=== PATIENT | female | born 1945 | race Caucasian/White ===

== ENCOUNTER 2018-10-28 16:51 | Inpatient (IN) | payer MEDICARE, OTHER ==
[~2018-10-28] VITALS: Ht 147.3 cm; Wt 51.7 kg
[2018-10-28 16:56] VITALS: BP 182/89
[2018-10-28 17:29] LABS: ABSOLUTE EOSINOPHILS 0.1 thou/uL (0.0-0.7); ABSOLUTE LYMPHOCYTES 1.4 thou/uL (0.8-5.3); ABSOLUTE MONOCYTES 0.4 thou/uL (0.0-1.2); ABSOLUTE NEUTROPHILS 2.5 thou/uL (1.6-8.1); BASOPHILS 0.3 %; EOSINOPHILS 1.4 %; HEMATOCRIT 36.8 % (37.0-47.0); HEMOGLOBIN 12.5 gm/dL (12.0-15.0); LYMPHOCYTES 31.3 %; MCH 34.1 pg (26.0-34.0); MCHC 33.8 g/dL (28.0-37.0); MCV 100.9 fL (80.0-100.0); MONOCYTES 10.1 %; MPV 7.4 fl. (7.2-11.1); NUCLEATED RBCS 0 /100WBC; PLATELET COUNT* 170 thou/uL (150-400); POLYS 56.9 %; RBC 3.65 mil/uL (4.20-5.00); RDW-CV 12.8 % (10.5-14.5); WBC 4.4 thou/uL (4.0-11.0)
[2018-10-28 17:49] LABS: ANION GAP 9 mmol/L (7-16); BUN 16 mg/dL (7-18); CALCIUM 9.1 mg/dL (8.5-10.1); CHLORIDE 102 mmol/L (98-107); CO2 29 mmol/L (21-32); GLUCOSE 113 mg/dL (70-99); POTASSIUM 3.5 mmol/L (3.5-5.1); SODIUM 140 mmol/L (136-145); TROPONIN-I LEVEL <0.06 ng/mL (<0.06)
[2018-10-28 17:51] LABS: ALBUMIN 3.9 g/dL (3.4-5.0); ALKALINE PHOSPHATASE 49 U/L (46-116); NT-PRO BRAIN NAT PEPTIDE 223 pg/mL (<300); SGOT 25 U/L (15-37); SGPT 31 U/L (30-65); TOTAL BILIRUBIN 0.5 mg/dL (<0.1-1.0); TOTAL PROTEIN 6.5 g/dL (6.4-8.2)
[2018-10-28] MEDS ORDERED: ACETAMINOPHEN-1 EAC1 PO (18:33)
[2018-10-28] MEDS ORDERED: LIPITOR 20 MG T20 M1 PO (18:33)
[2018-10-28] MEDS ORDERED: AZELASTINE137 MCG/0. INH (18:34)
[2018-10-28] MEDS ORDERED: FOLIC ACID1 MG PO (18:35)
[2018-10-28] MEDS ORDERED: GABAPENTIN 100100 MG PO (18:35)
[2018-10-28] MEDS ORDERED: CALCIUM 600 +1 EAC1 PO (18:35)
[2018-10-28] MEDS ORDERED: COENZYME Q-1030 MG PO (18:35)
[2018-10-28] MEDS ORDERED: COZAAR 25 MG TA25 M2 PO (18:35)
[2018-10-28] MEDS ORDERED: FISH OIL 1,001000 M2 PO (18:35)
[2018-10-28] MEDS ORDERED: MULTI VITAMIN1 EACH PO (18:36)
[2018-10-28] MEDS ORDERED: ROBAXIN 750 MG750 M1 PO (18:36)
[2018-10-28] MEDS ORDERED: ZANTAC 150MG T150 M1 PO ×2 (18:37)
[2018-10-28] MEDS ORDERED: ZYRTEC10 M4 PO (18:38)
[2018-10-28] MEDS ORDERED: VALACYCLOVIR1000 MG PO (18:38)
[2018-10-28 19:31] VITALS: BP 157/89
[2018-10-28 19:45] VITALS: BP 153/89
[2018-10-29] VITALS (8 sets, daily range): BP systolic 79–149; BP diastolic 55–88
--- NOTE | 2018-10-29 04:59 | NUR ---
PT RECIEVED FROM ED AT APPROX 1999. ALERT AND ORIENTED X4. SAT MAINTAINED IN RA. CALL LIGHT WITHIN REACH AND BED IN LOW POSITION. NIH DONE AND CHARTED. C/O PAIN, MEDICATION GIVEN PER EMAR. HOURLY ROUNDING DONE FOR PATIENT SAFETY.
[2018-10-29 05:52] LABS: CHOLESTEROL 129 mg/dL (<200); HDL CHOLESTEROL 70 mg/dL (>40); LDL CHOLESTEROL 53 mg/dL (<100); TC:HDL 1.8 Ratio (Not establshd); TRIGLYCERIDE 33 mg/dL (<150); VLDL 7 mg/dL (<40)
[2018-10-29 05:54] LABS: SERUM ASSESSMENT Clear
[2018-10-29] MEDS ORDERED: ASPIR 8181 MG PO (10:55)
--- NOTE | 2018-10-29 12:31 | EKG ---
[place] [address] ELECTROCARDIOGRAM REPORT Name: ROD ELIZABETH Room: [address] ADM IN M.R.#: [id number] Admission: 10/28/18 Attend Phys: Abdifatah Mcbride MD Discharge: Date of : 41 Report #: [id number] THIS REPORT FOR: //name// [facility] ED Test Date: 2018-10-28 Test Time: 17:20:08 Pat Name: ROD ELIZABETH Department: Room: [facility] Gender: F Steel Pourer: Bubba LANGE : 1945 Requested By: Jay Jay Cifuentes Order Number: [id number] MD: Arnulfo Acosta Measurements Intervals [place] Rate: 78 P: 64 OK: 143 QRS: 17 QRSD: 89 T: 46 QT: 403 QTc: 460 Interpretive Statements Sinus rhythm No previous ECG available for comparison Electronically Signed On 10-29-2018 12:31:00 CDT by Arnulfo Acosta [email or web address] <ELECTRONICALLY SIGNED> By: Arnulfo Acosta MD, [facility] 10/29/18 1231 19 Arnulfo Acosta MD, [facility] /EPI
--- NOTE | 2018-10-29 15:47 | NUR ---
PT A&O X4, UP WITH ASSIST X1 AND WALKER, FALL PRECAUTIONS IN PLACE. C/O PAIN TO BACK OF HEAD FROM FALL, PRN PAIN MEDS ON BOARD, TOLERATED WELL WITH GOOD RESULTS. PT REFUSED ASA AND ALL SUPPLEMENTS THIS AM D/T HAVING SURGERY 11/03. HOURLY ROUNDING COMPLETED. PT DISCHARGED HOME LEAVING UNIT AT APPROX 1535, EDUCATED ON ALL DISCHARGE INSTRUCTIONS INCLUDING MEDICATIONS AND FOLLOW UP APPTS. ASSEMBLY AND PACKING SUPERVISOR AND IV REMOVED. PT LEFT VIA WC WITH NURSING STAFF AND DAUGHTER AT SIDE.
[2018-10-29 23:05] LABS: GLYCOHEMOGLOBIN (HGB A1C) 5.2 % (4.8-5.6)
--- NOTE | 2018-10-30 11:27 | CON ---
[address] [address] CONSULTATION Name: GLENNROD Bubba Room: [address] IN M.R.#: [id number] Admission: 10/28/18 Attend Phys: Abdifatah Mcbride MD Discharge: 10/29/18 Date of : 41 Report #: [id number] THIS REPORT FOR: //name// CC: Abdifatah Bonillas HISTORY OF PRESENT ILLNESS: The patient is a 73-year-old female who yesterday had a very active day when she went home. By the time she had carried her second load of laundry up the stairs, she remembers grabbing for the rail, but in fact she fell backwards. She remembers looking at the ceiling. Apparently, she put a hole in the wall behind her. She was found by her neighbor who had borrowed her front end software developer. When he found her, she was confused. In fact, she has no real recollection of getting into the car and coming to the hospital. Today, the patient feels fine. She has no headache. She does tell me that from time to time, she has weakness in her legs. She is going to be having back surgery for spinal stenosis, sometime in November. PAST MEDICAL HISTORY: Hyperlipidemia, hypertension, gastroesophageal reflux, environmental allergies, non-Hodgkin's lymphoma, right pneumothorax, spinal stenosis. PAST SURGICAL HISTORY: Foot surgery. MEDICATIONS AT HOME: Tylenol 3, Lipitor 20 mg daily, azelastine nose spray b.i.d., calcium with vitamin D daily, losartan 25 mg daily, coenzyme Q10 30 mg daily, fish oil 1000 mg daily, folic acid 1 mg daily, gabapentin 100 mg daily, methocarbamol 750 mg at bedtime, multivitamin daily, ranitidine 150 mg in the morning and 75 mg at night, valacyclovir 1000 mg p.r.n. and cetirizine 10 mg daily. ALLERGIES: None. PHYSICAL EXAMINATION: VITAL SIGNS: Temperature is 36.8, pulse rate 75, respiratory rate 16, blood pressure 75/55, bedside pulse oximetry 98% on room air. NEUROLOGIC: Cranial nerves 2-12 are grossly intact. Motor exam demonstrates symmetrical strength in all 4 extremities with tone and bulk normal. Reflexes are trace. Plantar responses are flexor. Coordination reveals intact [id number]. Gait was not tested. LABORATORY DATA: Hematology: White blood cell count 4.4, hemoglobin 12.5, hematocrit 36.8, platelets 170,000. Chemistry: Sodium 140, potassium 3.5, chloride 102, carbon dioxide 25, BUN 16, creatinine 1, glucose 113. Liver functions normal. Lipid profile normal. IMAGING: CT scan of the head shows microvascular disease. Carotid ultrasound demonstrates no evidence [place] [address] CONSULTATION Name: ROD ELIZABETH Room: [address] IN [facility].#: [id number] Admission: 10/28/18 Attend Phys: Abdifatah Mcbride MD Discharge: 10/29/18 Date of : 41 Report #: [id number] IMPRESSION: This patient has had a mild concussion. However, she now has no further symptoms. Most likely, she fell secondary to the spinal stenosis, which caused weakness in the legs. However, the patient does have several low blood pressures and hypotension should also be considered. Her last blood pressure at noon was 79/55. Her blood pressure should be checked before she is discharged and if it continues to remain low, then her blood pressure medications may need to be adjusted or she may need a referral to a bookbinder apprentice. Otherwise, aside from the blood pressure, the patient should be able to go home today. I encouraged her to use a cane, especially until she has her back surgery. <ELECTRONICALLY SIGNED> By: Aaliyah Savage DO 10/30/18 1127 1238 043Robyn Savage DO /dennys
== END 2018-10-29 15:17 | disposition home or self-care (01) | DRG 89 ==
LOC: M.ERS 16:51 → M.TBA-ER 18:22 → M.2W 19:45
PROVIDERS: Emergency Medicine; ADMIT Internal Medicine
DX: S06.0X9A Concussion with loss of consciousness of unspecified duration, initial encounter (principal); G45.9 Transient cerebral ischemic attack, unspecified; M48.00 Spinal stenosis, site unspecified; E78.5 Hyperlipidemia, unspecified; G89.29 Other chronic pain; M54.9 Dorsalgia, unspecified; T50.905A Adverse effect of unspecified drugs, medicaments and biological substances, initial encounter; I10 Essential (primary) hypertension; K21.9 Gastro-esophageal reflux disease without esophagitis; M19.90 Unspecified osteoarthritis, unspecified site; Z79.82 Long term (current) use of aspirin; Z79.899 Other long term (current) drug therapy; Y92.9 Unspecified place or not applicable; W18.39XA Other fall on same level, initial encounter; Y93.01 Activity, walking, marching and hiking; Y92.89 Other specified places as the place of occurrence of the external cause; Y99.8 Other external cause status; Z85.72 Personal history of non-Hodgkin lymphomas

== ENCOUNTER 2018-11-08 16:08 | Inpatient (IN) | payer MEDICARE, OTHER ==
[~2018-11-08] VITALS: Ht 147.3 cm; Wt 50.8 kg
[~2018-11-08 16:08] MED LIST: ACETAMINOPHEN-1 EAC1 PO; ASPIR 8181 MG PO; AZELASTINE137 MCG/0. INH; CALCIUM 600 +1 EAC1 PO; COENZYME Q-1030 MG PO; COZAAR 25 MG TA25 M2 PO; FISH OIL 1,001000 M2 PO; FOLIC ACID1 MG PO; GABAPENTIN 100100 MG PO; LIPITOR 20 MG T20 M1 PO; MULTI VITAMIN1 EACH PO; ROBAXIN 750 MG750 M1 PO; VALACYCLOVIR1000 MG PO; ZANTAC 150MG T150 M1 PO; ZYRTEC10 M4 PO
[2018-11-08] MEDS ORDERED: OXYCODONE HCL 55 MG PO (18:02)
[2018-11-08 20:00] VITALS: BP 156/76
[2018-11-09 03:43] LABS: URINE BILIRUBIN NEGATIVE (Negative); URINE BLOOD NEGATIVE (Negative); URINE CLARITY CLEAR; URINE COLOR YELLOW; URINE GLUCOSE-RANDOM NEGATIVE (Negative); URINE KETONES NEGATIVE (Negative); URINE LEUKOCYTES-REFLEX NEGATIVE (Negative); URINE NITRITE-REFLEX NEGATIVE (Negative); URINE PROTEIN NEGATIVE (Negative); URINE UROBILINOGEN 0.2 E.U./dl (0.2-1.0)
--- NOTE | 2018-11-09 05:22 | NUR ---
PT ARRIVED ONTO UNIT AT 1845 WITH FAMILY. ALERT AND ORIENTED X 4. PLEASANT. LUMBAR SPINAL STENOSIS WITH RADICULOPATHY. S/P LAMINECTOMY. SPINAL PRECAUTIONS. INCISION TO BACK WITH DERMABOND AND OPERATIONS ANALYST. C/O BACK PAIN. PAIN MEDS GIVEN NEEDED. TOOK PILLS WHOLE. MIN ASSIST WITH GAIT BELT AND WALKER. UP TO BATHROOM. DOES OWN CARES. PVR SHOWED 175 CC. PT ORIENTED TO UNIT AND . ADMISSION ASSESSMENT COMPLETED. PT SLEPT WELL MOST OF THE NIGHT. CALL LIGHT IN REACH AND BED ALARM ON.
[2018-11-09 05:43] LABS: HEMATOCRIT 23.7 % (37.0-47.0); HEMOGLOBIN 8.1 gm/dL (12.0-15.0); MCH 34.1 pg (26.0-34.0); MCHC 34.2 g/dL (28.0-37.0); MCV 99.8 fL (80.0-100.0); MPV 7.6 fl. (7.2-11.1); RBC 2.38 mil/uL (4.20-5.00); RDW-CV 13.1 % (10.5-14.5); WBC 3.7 thou/uL (4.0-11.0)
[2018-11-09 05:47] LABS: CALCIUM 8.8 mg/dL (8.5-10.1); POTASSIUM 3.8 mmol/L (3.5-5.1)
[2018-11-09 10:21] VITALS: BP 139/77
--- NOTE | 2018-11-09 17:03 | NUR ---
PATIENT UP WITH STAND BY ASSIST. TO DINNING AREA WITH VISITOR. GOOD PO INTAKE. DENIES PAIN OR DISCOMFORT. ASKING FOR TYLENOL WHEN SHE DOES. DR TORRES HERE TO SEE PATIENT.
--- NOTE | 2018-11-09 17:15 | NUR ---
SW met with pt and pt dtr to complete initial assessment, introduce self, and SW role on inpt rehab unit and to review team conference summary and plan for team to reassess pt length of stay during team conference next Thursday 11/16. Pt alert, oriented, pleasant. Pt lives at home with dtr support at times; dtr does work for [employer] and has mandatory overtime often. Pt goal to be mod I at dc. Pt has shower chair, grab bars, single point cane, rollator and pt was given a RW that is too wide for pt so pt may need standard RW ordered at dc. [place] so pt also has goal for mastering stairs safely. SW to continue to follow to assist with safe dc planning.
[2018-11-09 20:20] VITALS: BP 152/72
--- NOTE | 2018-11-10 01:53 | NUR ---
ASSUMED CARE @ 192-11/09-WED.AWAKE IN BED W/ HOB UP.SIDERAILS X2 UP.BED ALARM PUT ON.PATIENT BRUSHED TEETH X4 BY SINK W/ SBA.THEN,WASHED FACE.SEE PAIN MANAGEMENT @ 2021.FLORES PAD PUT ON @# 2315 AFTER BRP #2 W/ DRIBBLING URINE & URINE ACCIDENT #1.WET UNDERWEAR & PJ PANTS.BOTH CHANGED.PRN ROBAXIN ORAL GIVEN @ 3871-PER PT'S REQUEST.ON HOURLY ROUNDS.SEE POSITION CHANGE CHARTING.
--- NOTE | 2018-11-10 02:09 | NUR ---
ASSUMED CARE @ 1924-11/09-WED.AWAKE IN BED W/ HOB UP.SIDERAILS X2 UP.BED ALARM PUT ON @ @ 1924.PATIENT BRUSHED TEETH 4X BY SINK W/ SBA.THEN,WASHED FACE.SEE PAIN MANAGEMEMT @ 2021.PER PAD PUT ON @ 5 AFTER BRP #2 W/ DRIBBLING URINE ON FLOOR & URINE ACCIDENT #1.WET UNDERWEAR & PJ PANTS.BOTH CHANGED.PRN ROBAXIN ORAL GIVEN @ 2327-PER PT'S REQUEST.ON HOURLY ROUNDS.SEE POSITION CHANGE CHARTING.
--- NOTE | 2018-11-10 05:34 | NUR ---
SLEPT EARLY @ 2100 & SLEEPING GOOD ALL NIGHT.TOOK ALL APPLE SAUCE HS SNACK. BRP W/ SBA X3.URINE ACCIDENT-DRIBBLING ON FLOOR X 1.
[2018-11-10 08:00] VITALS: BP 131/82
--- NOTE | 2018-11-10 12:28 | NUR ---
Nutrition: Pt admitted to rehab with spinal stenosis, sciatica. Wt stable, 110#. Eating 100% of regular diet. RX, labs noted. Low nutrition risk.
[2018-11-10 20:16] VITALS: BP 133/79
--- NOTE | 2018-11-11 01:52 | NUR ---
ASSUMED CARE @ [address]-5/9-.AWAKE IN BED. ON PHONE.HOB UP.SIDERAILS X3 UP. BED ALARM PUT ON 1919.PRN ROBAXIN ORAL GIVEN @ 2122-PER PT'S RREQUEST.SEE PAIN MANAGEMENT @ 2130.TURNS SELF @ NIGHT.ON HOURLY ROUNDS.STONEWORK TRACER DOING ODD HOUR ROUNDS.
--- NOTE | 2018-11-11 05:28 | NUR ---
SLEEPING SINCE 2200 & SLEPT GOOD ALL NIGHT.REFUSED HS SNACK.WEARS FLORES PAD. EDUCATION GIVEN ON NEW MED-LOVENOX.BRP X3 W/ SBA.
[2018-11-11 11:18] VITALS: BP 109/75
--- NOTE | 2018-11-11 18:56 | NUR ---
ALERT AND ORIENTED. AMBULATES WITH ROLLING WALKER. DENIES COMPLAINTS OF PAIN OR DISCOMFORT. NO SIGN OF DISTRESS.
[2018-11-11 20:00] VITALS: BP 119/72
--- NOTE | 2018-11-12 00:52 | NUR ---
ASSUMED CARE AT 1930. PATIENT RESTING IN RECLINER UNTIL AROUND 2100. UP WITH SBA, GAIT BELT, ROLLATOR WALKER. VOIDS PER TOILET. BED ALARM ON. ATTEMPTS TO PUT LEGS BETWEEN BED RAILS BEFORE NURSE GETS THERE, BUT THE POSITION OF HER LEGS PREVENTS THE RAILS FROM GOING DOWN. ENCOURAGED HER TO WAIT FOR THE NURSE TO PUT DOWN SIDE RAILS BEFORE MOVING THEM. WEARS PERIPAD IN PANTIES. TAKES PILLS WHOLE WITH WATER. TOOK ROBAXIN AT HS. HOURLY ROUNDS CONTINUE. BED ALARM ON. CALL LITE IN REACH.
--- NOTE | 2018-11-12 06:03 | NUR ---
RESTED QUIETLY MOST OF THE NIGHT. UP TO VOID PER TOILET. BED ALARM ON. HOURLY ROUNDS CONTINUE. CALL LITE IN REACH.
[2018-11-12 07:00] VITALS: BP 131/76
[2018-11-12 08:20] VITALS: BP 131/76
[2018-11-12 20:00] VITALS: BP 115/75
--- NOTE | 2018-11-13 05:40 | NUR ---
ASSUMED CARES AT 1920. ALERT AND ORIENTED. PLEASANT. BACK INCISION WELL APPROXIMATED AND ELIZABET. PAIN MEDS GIVEN NEEDED FOR BACK PAIN. SBA WITH GAIT BELT AND WALKER. UP TO BATHROOM. DOES OWN CARES. DISUSSED WITH PT HAD NOT HAD BM SINCE 11/08. PT SAYS THAT USED MIRALAX AT HOME. SLEPT WELL MOST OF THE NIGHT. CALL LIGHT IN REACH AND BED ALARM ON.
[2018-11-13 07:30] VITALS: BP 97/65
--- NOTE | 2018-11-13 16:44 | NUR ---
ASSUMED CARE AT 0730. ALERT ORIENTED PLEASANT COOPERATIVE. HX OF LAMINECTOMY INCISION GLUED SLIGHT REDNESS NOTED DISTAL END OF INCISION. ELIZABET. TRANSFERS WITH SBA G BELT WALKER AMBULATES TO BR TO VOID AND HAD A LARGE SOFT SEMIFORMED GREEN BM THIS MORNING. DD OWN HYGEINE AND CLOTHING ADJUSTMENTS. FEEDS SELF APPETITE GOOD. MEDICATED X 2 TODAY ONE IBUPROFEN AND 2 TYLENOL PER PT. REQUEST. ABLE TO DO ORAL CARE WASHED FACE HANDS COMBED HAIR AT SINK. DID C/O SPASM RT. LEG THIS A.M. NO REQUEST FOR MUSCLE RELAXER WHEN OFFERED. DRESSED SELF WITHOUT DIFFICULTY. USES CALL LIGHT APPROPRIATELY FOR ASSIST.
[2018-11-13 20:00] VITALS: BP 119/79
--- NOTE | 2018-11-14 07:38 | NUR ---
ASSUMED CARES AT 1920. ALERT AND ORIENTED. PLEASANT. PT C/O OF MORE SORENESS OVERNIGHT AND THIS AM DESPITE APAP AND ROBAXIN GIVEN. DID NOT WANT TO TAKE IBUPROFEN DURING THE NIGHT SHE SAID IT MADE HER FEEL "RUSHED". WAS FINALLY ABLE TO SLEEP REST OF THE NIGHT. PT ASKING FOR SOMETHING STRONGER ON HAND IN CASE SHE NEEDED IT OVERNIGHT. SBA WITH GAIT BELT AND WALKER. UP TO BATHROOM. SITTING UP IN RECLINER AT THIS TIME DUE TO BACK PAIN. CALL LIGHT IN REACH
[2018-11-14 08:10] VITALS: BP 108/65
--- NOTE | 2018-11-14 14:19 | NUR ---
ASSUMED CARE AT 0730. ALERT ORIENTED PLEASANT COOPERATIVE. HX OF LAMI, INCSION IS GLUED, SLIGHT PINKNESS DISTAL END OF INCISION. SPINAL PRECAUTIONS TRANSFERS WITH SBA G BELT WALKER AMBULATING TO BR. HAD MORE DISCOMFORT LAST NIGHT AND DIDNT FIND COMFORTABLE POSITION. DR. TIWARI ORDERED TRAMADOL PRN EVERY 12 HRS. PT. WAS GIVEN 1 TAB PO AFTER AFTERNOON P.T. SESSION. P.T. GAVE HER AND SINGLE POINT CANE THIS AFTERNOON. RESTING IN BED THIS AFTERNOON LEFT SIDE.
[2018-11-14 20:00] VITALS: BP 113/54
--- NOTE | 2018-11-15 06:03 | NUR ---
ASSUMED CARE AT 1920. ALERT AND ORIENTED. S/P LAMINECTOMY. SPINAL PRECAUTIONS. STILL HAVING MUCH PAIN TO LOWER BACK. PAIN MEDS GIVEN NEEDED. SBA WITH GAIT BELT AND WALKER. UP TO BATHROOM. SLEPT SOME OF THE NIGHT. CALL LIGHT IN REACH AND BED ALARM ON.
[2018-11-15 07:39] VITALS: BP 105/66
--- NOTE | 2018-11-15 18:36 | NUR ---
ALERT AND ORIENTED X 4, CONT. TO AMBULATE WITH MIN ASSIST. PATIENT IS TAKING IBUPROFEN FOR BACK PAIN. SEEN BY DR TORRES TODAY. CONT. WITH CURRENT PLAN OF CARE AT [facility].
[2018-11-15 19:00] VITALS: BP 109/70
--- NOTE | 2018-11-15 20:45 | NUR ---
SITTING UP ON SIDE OF BED WATCHING TV. ROBAXIN GIVEN PER REQUEST. TOOK MEDICATIONS WHOLE WITH WATER.
--- NOTE | 2018-11-16 05:23 | NUR ---
UP X ONE DURING THE NIGHT TO THE BATHROOM TO VOID. TRAMADOL GIVEN AT BEDTIME AND TYLENOL GIVEN DURING THE NIGHT WITH RELIEF. HOURLY ROUNDING IN PROGRESS.
[2018-11-16 08:00] VITALS: BP 131/68
--- NOTE | 2018-11-16 16:34 | NUR ---
PATIENT IS UP WITH SBA, PLANS TO MAKE MODIFIED INDEPENDENCE TOMORROW. POSSIBLE DISCHARGE TOMORROW. CONT. WITH HEATING PAD AND LIDOCAINE PATCH. NO FURTHER COMPLAINTS. CONT. WITH PLAN OF CARE.
--- NOTE | 2018-11-16 16:38 | NUR ---
SW met with pt to review team conference summary and plan for pt to dc home on Wednesday. Pt in agreement with plan. Pt has a single point cane and no longer needs a standard rolling walker ordered at dc. Pt to be able to be Mod I tomorrow according to team and doctor's approval. SW discussed HH options; pt wants to have HH services and SW to continue to follow to arrange and assist with safe dc planning. Pt dtr to provide pt ride home on Wednesday about 6:00 pm.
[2018-11-16 19:00] VITALS: BP 109/66
--- NOTE | 2018-11-16 20:20 | NUR ---
SITTING UP IN A CHAIR TALKING ON HER CELL. ROBAXIN AND TYLENOL GIVEN PER REQUEST FOR COMPLAINT OF BACK PAIN RATED "5". DECLINED OFFER OF A SNACK. CALL LIGHT WITHIN REACH.
--- NOTE | 2018-11-17 06:39 | NUR ---
GAVE TRAMADOL DURING THE NIGHT PER REQUEST FOR COMPLAINT OF BACK PAIN WITH RELIEF. IBUPROFEN GIVEN THIS MORNING PER REQUEST FOR COMPLAINT OF BACK PAIN WITH RELIEF. PATIENT IS TO BE MODIFIED INDEPENDENT IN HER ROOM TODAY. HOURLY ROUNDING IN PROGRESS.
[2018-11-17 10:13] VITALS: BP 121/72
--- NOTE | 2018-11-17 16:51 | NUR ---
ASSUMMED CARE OF PT AT 0730, PT ALERT AND ORIENTED, MAINTAINING MOD I IN ROOM, ASKING QUESTIONS REGARDING DISCHARGE TOMORROW, INCISION SALES EXEC ON BACK, PT UP TO BATHROOM TO VOID, PT COMPLAINS OF BACK PAIN, MEDICATED PER ORDER, HEATING PAD, AMBULATED TO DININGROOM WITH CANE, PARTICIPATED IN ALL THERAPIES, HOURLY ROUNDING COMPLETED, ASSESSMENT COMPLETE, WILL CONTINUE TO MONITOR.
[2018-11-17 19:45] VITALS: BP 119/61
--- NOTE | 2018-11-18 00:48 | NUR ---
ASSUMED CARE AT 1930. PATIENT MOD I IN ROOM. NO UNSAFE BEHAVIORS NOTED. UP WITH CANE. SITS ON ROLLATOR WALKER TO HS CARES AT SINK. MEDICATED FOR PAIN AT HS. SEE SEP. TURNS SELF. HOURLY ROUNDS CONTINUE. CALL LITE IN REACH.
--- NOTE | 2018-11-18 05:31 | NUR ---
SLEPT OFF AND ON THROUGH THE NIGHT. MOD I IN ROOM. NO UNSAFE BEHAVIOR NOTED. MEDICATED FOR PAIN, SEE SEP. HOURLY ROUNDS CONTINUE. BED ALARM ON. CALL LITE IN REACH.
[2018-11-18 07:15] VITALS: BP 134/69
[2018-11-18 12:25] VITALS: BP 134/69
--- NOTE | 2018-11-18 12:29 | NUR ---
Pt to dc home today with dtr support and HH services to follow. SW arranged for pt preference of [facility] and SW faxed referral and dc orders/med list to [facility] [phone] fax [phone] Pt dtr to provide pt ride home. Pt has single point cane. Pt signed Medicare message and HH choice form.
[2018-11-18] MEDS ORDERED: ACETAMINOPHEN-1 EAC1 PO (17:29)
--- NOTE | 2018-11-18 17:34 | NUR ---
ASSUMED CARE AT 0730. ALERT ORIENTED PLEASANT COOPERATIVE. HX OF LAMI. PT. IS MOD I IN ROOM. INCISION IS HOUSE MOVING SUPERVISOR GLUED. PARTICIPATING IN THERAPIES THROUGHOUT THE DAY. MEDICATED X 2 FOR C/O BACK PAIN WITH MIN RELIEF STATED. UP AND ABOUT IN ROOM WITH CANE WITH NO SAFETY ISSUES. WENT OVER D/C INSTRUCTIONS WITH PT. VERBALIZED UNDERSTANDING OF THEM ALLOWED TIME FOR QUESTIONS. SCRIPTS GIVEN TO PT.
--- NOTE | 2018-11-18 18:39 | NUR ---
DISCHARGED PER W/C WITH BELONGINGS AND D/C INSTRUCTIONS TO HOME WITH DAUGHTER IN PRIVATE CAR AT 1815.
== END 2018-11-18 18:15 | disposition home health service (06) | DRG 552 ==
LOC: M.REH 16:08
PROVIDERS: ADMIT Physical Medicine & Rehabilitation
DX: M47.26 Other spondylosis with radiculopathy, lumbar region (principal); G89.29 Other chronic pain; K21.9 Gastro-esophageal reflux disease without esophagitis; E78.5 Hyperlipidemia, unspecified; M81.0 Age-related osteoporosis without current pathological fracture; M06.9 Rheumatoid arthritis, unspecified; I25.10 Atherosclerotic heart disease of native coronary artery without angina pectoris; E04.9 Nontoxic goiter, unspecified; R53.81 Other malaise; Z79.899 Other long term (current) drug therapy; Z91.81 History of falling; Z85.72 Personal history of non-Hodgkin lymphomas